=== PATIENT | female | born 1960 | race African-American/Black ===

== ENCOUNTER → 2017-06-16 | Outpatient (CLI) | payer MEDICARE, MEDICAID ==
[~2017-06-16] MED LIST: GLIPIZIDE; METFORMIN
== END ==
LOC: MC.RAD 11:29
DX: Z12.31 Encounter for screening mammogram for malignant neoplasm of breast (principal)

== ENCOUNTER → 2019-06-28 | Outpatient (CLI) | payer MEDICARE, MEDICAID | LOC: MC.RAD 13:15 | DX: Z12.31 Encounter for screening mammogram for malignant neoplasm of breast (principal) ==

== ENCOUNTER → 2021-12-14 | Outpatient (CLI) | payer MEDICARE, MEDICAID | LOC: MC.RAD 11-09 11:15 | DX: Z12.31 Encounter for screening mammogram for malignant neoplasm of breast (principal) ==